=== PATIENT | female | born 1985 | race Caucasian/White ===

== ENCOUNTER 2025-04-26 18:55 | Emergency (ER) | payer OTHER, SELFPAY ==
[2025-04-26 20:03] VITALS: BP 118/76; PULSE 76; RESP 20; TEMP 36.8; O2SAT 96; BMI 45.0
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
[2025-04-26 21:04] VITALS: BP 118/76; PULSE 76; RESP 20; TEMP 36.8; O2SAT 96
--- OUTSIDE RECORDS SUMMARY | 2025-04-26 21:05 | XMS_ITS | Clinical Summary ---
Author Organization [employer] Address [address] [place] [address] Care Team Providers Care Stage Technician Name Role Phone Unavailable Primary Care Provider Unavailabl e Social History Tobacco Use Types Packs/Day Years Used Date Smoking Tobacco: Never Assessed Comments Unknown Sex and Gender Information Value Date Recorded Sex Assigned at Not on file Legal Sex Female 2:21 PM EST Gender Identity Not on file Sexual Orientation Not on file Plan of Treatment Health Maintenance Due Date Last Done Comments Depression Screening 1984 HIV Screening 1984 SDOH Screening 1984 Disability Screening 1984 Alcohol/Substance Use Screening 1996 Tobacco Screening 1996 Family Planning (PISQ) 1999 Hepatitis C Screening 2002 Pap Smear 2005 Cervical Cancer Screening 2014 HPV/Cotest 2014 COVID-19 Vaccine ( - 2023-2 5 season) 2024 Mammogram 2024 Influenza Vaccine (#1) 2025 09/03/2023 DTaP/Tdap/Td Vaccines (2 - T d or Tdap) 10/31/2032 10/31/2022 Zoster Vaccines (1 of 2) 2034 RSV Patients and Patients Aged 60 years or older (1 - 1-dose 75+ series) 2059 Hepatitis B Vaccines Completed 09/03/2023, 06/01/2023, 10/31/2022 HIB Vaccines Aged Out No longer eligi ble based on patient's age to complete this topic HPV Vaccines Aged Out No longer eligi ble based on patient's age to complete this topic Hepatitis A Vaccines Aged Out No long er eligible based on patient's age to complete this topic IPV Vaccines Aged Out No longer eligi ble based on patient's age to complete this topic Meningococcal B Vaccine Aged Out No l onger eligible based on patient's age to complete this topic Meningococcal Vaccine Aged Out No lisa alie eligible based on patient's age to complete this topic Pneumococcal Vaccine: Pediatrics (0 to 5 Years) and At-Risk Patients (6 to 49) Years Aged Out No longer eligible b ased on patient's age to complete this topic RSV under 20 months Aged Out No longe r eligible based on patient's age to complete this topic Rotavirus Vaccines Aged Out No longer eligible based on patient's age to complete this topic Insurance [facility]
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
== END 2025-04-26 21:04 | disposition home or self-care (01) ==
LOC: HO.ED 21:03
PROVIDERS: Emergency Provider Emergency Medicine
DX: S13.4XXA Sprain of ligaments of cervical spine, initial encounter (principal); M54.50 Low back pain, unspecified; M54.9 Dorsalgia, unspecified; V43.62XA Car passenger injured in collision with other type car in traffic accident, initial encounter; Y93.9 Activity, unspecified; Y92.9 Unspecified place or not applicable; Y99.9 Unspecified external cause status
CPT/HCPCS: 96372; 99283; 99284; J1885; J8540